=== PATIENT | female | born 1950 | race Caucasian/White ===

== ENCOUNTER 2017-03-18 10:36 | Day surgery (SDC) | payer MEDICARE, BC ==
[~2017-03-18 10:36] MED LIST: Lactated Ringers 1,000 ML IV SCH; Sodium Chloride 0.9% 10 ML Syringe FLUSH PRN
--- NOTE | 2017-03-18 10:57 | PCM.HPR ---
H & P Addendum review - H & P Addendum Review Date of Original H & P: 03/10/17 Date Reviewed: 03/18/17 Time Reviewed: 10:57 Patient was examined: No Changes (ok to proceed with colonoscopy)
[2017-03-18] MEDS ORDERED: Midazolam 1 MG/ML 2 ML SDV ONE ×2 (11:03→11:09)
[2017-03-18] MEDS ORDERED: fentaNYL 100 MCG/2 ML SDV ONE ×2 (11:03→11:09)
[2017-03-18] MEDS ORDERED: Propofol 200 MG/20 ML SDV ONE ×2 (11:05→11:09)
--- NOTE | 2017-03-18 11:37 | PCM.OPNOTE ---
- General Post-Op/Procedure Note Date of Surgery/Procedure: 03/18/17 Operative Procedure(s): Colonoscopy Findings: Sig tics; rectal polyp @ 12 cm Pre Op Diagnosis: Hx Polyps Post-Op Diagnosis: Same Anesthesia Technique: MAC Primary Surgeon: Beka Arredondo Anesthesia Provider: Joselo Contreras Pathology: rectal polyp EBL in mLs: 0 Complications: None Condition: Good
--- NOTE | 2017-03-18 14:43 | OR ---
Date of Procedure: 03/18/2017 PREOPERATIVE DIAGNOSIS: History of colon polyps. POSTOPERATIVE DIAGNOSES: 1. Rectal polyp. 2. Sigmoid diverticulosis. PROCEDURE: Colonoscopy with polypectomy. ANESTHESIA: IV sedation. PROCEDURE IN DETAIL: The patient was brought to the procedure room, where she was placed on the left side and IV sedation administered. Digital rectal exam was performed which was normal. Colonoscope was inserted and advanced to the level of the cecum without difficulty. Cecal position was confirmed by identifying the appendiceal lumen and ileocecal valve. Prep was good and surfaces were well visualized. Upon withdrawing the scope, the ascending, transverse, and descending colon were normal in appearance. Sigmoid colon had several diverticula present. In the rectum, was a 6 mm sessile polyp located 12 cm from the anal verge that was removed with a cautery snare and sent for pathology review. Retroflexion was normal. Air was removed and the scope withdrawn. Patient tolerated the procedure well and returned to recovery in stable condition. The patient will follow up with [facility] next week for review of pathology report. If the polyp is adenomatous, she should undergo next colonoscopy in 3 years. If the polyp is hyperplastic, she can wait 5 years until her next colonoscopy. MARY LOU SANTO MD /[id number]
[2017-03-18 14:52] VITALS: BP 121/59
== END 2017-03-18 13:00 | disposition home or self-care (01) ==
LOC: LL.SDS 10:36
PROVIDERS: ATTEND Surgery
DX: Z12.11 Encounter for screening for malignant neoplasm of colon (principal); K62.1 Rectal polyp; K57.30 Diverticulosis of large intestine without perforation or abscess without bleeding; I10 Essential (primary) hypertension; K21.9 Gastro-esophageal reflux disease without esophagitis; Z86.010 Personal history of colon polyps; Z90.49 Acquired absence of other specified parts of digestive tract; Z79.899 Other long term (current) drug therapy; Z98.890 Other specified postprocedural states; Z88.1 Allergy status to other antibiotic agents; Z88.6 Allergy status to analgesic agent
CPT/HCPCS: 45385; J2250; J2704; J3010; J7120; 00810-QZ; 88305

== ENCOUNTER 2019-06-13 08:16 | Emergency (ER) | payer MEDICARE, BC ==
[2019-06-13] MEDS ORDERED: Famotidine 20 MG/2 ML SDV IVPUSH ONE (08:21)
[2019-06-13] MEDS ORDERED: Metoprolol Tartrate 5 MG/5 ML SDV IVPUSH ONE (08:21)
--- NOTE | 2019-06-13 08:21 | EDM.PDOC ---
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 The patient was standing at her workstation when she had sudden onset severe dizziness, sat in her chair, and had a true syncopal episode with loss of consciousness of unknown length of time. She fell on the left side of her face and head resulting in a superficial abrasion and posterior head contusion as below. No treatment prior to arrival. This episode is similar to her previous episode in 2015 with patient apparently pressing her loop monitor recorder after waking up. No apparent seizure type activity, postictal sedation, stool/urine incontinence, etc. The patient denies any chest pain/pressure, heart flutter, dizziness, orthostasis, orthopnea, diaphoresis, paresthesias, recent decreased exercise tolerance, or any other anginal-type symptoms. No recent history of abdominal pain, heartburn, nausea, diarrhea, melena, gross hematochezia, or any food intolerance, including fatty foods, etc. with last normal bowel movement yesterday. She denies any gross hematuria, colic, or other UTI symptoms. The patient also denies any recent fever, cough, wheezing, dyspnea, etc.. No history of recent headaches, visual changes, diplopia, change in mental status, or other change in neurological status. She did take her medications this morning. She denies any current pain or discomfort. Onset: Today, Sudden, Unknown/Unsure Onset Date: 06/13/19 Onset Time: 07:00 Duration: Resolved Prior to Arrival Location: Reports: Head, Face. Denies: Neck, Chest, Abdomen, Back, Pelvis, Upper Extremity, Left, Upper Extremity, Right, Radiates to Quality: Reports: Same as Previous Episode Improves with: Reports: None Worsens with: Reports: None Context: Reports: Other (As above). Denies: Sick Contact, Trauma Associated Symptoms: Reports: Syncope. 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: Reports: Other (see below) (None) - Related Data Allergies Allergy/AdvReac Type Severity Reaction Status Date / Time ciprofloxacin Allergy Nausea and Verified 06/13/19 08:58 Vomiting oxycodone [From Percodan] AdvReac Other Verified 06/13/19 09:00 Tetanus Vaccines and Toxoid AdvReac Fatigue Verified 06/13/19 09:00 Home Meds: Home Meds Enalapril [Vasotec] 20 mg PO BID 04/08/16 [History] Omeprazole Magnesium [Prilosec Otc] 20 mg PO DAILY 04/08/16 [History] Pyridoxine HCl [Vitamin B-6] 100 mg PO DAILY 04/08/16 [History] Ubidecarenone [Co Q-10] 100 mg PO DAILY 04/08/16 [History] Cholecalciferol (Vitamin D3) [Vitamin D3] 4,000 unit PO DAILY 06/13/19 [History] Diclofenac Sodium [Voltaren 1%] 1 applic TP QID PRN 06/13/19 [History] Docusate Sodium [Colace] 100 mg PO DAILY 06/13/19 [History] Past Medical History HEENT History: Reports: Impaired Vision, Other (See Below). Denies: Allergic Rhinitis, Cataract, Glaucoma, Hard of Hearing, Macular Degeneration, Otitis Media, Retinal Detachment Other HEENT History: The patient wears glasses. Cardiovascular History: Reports: Arrhythmia, Heart Murmur, Hypertension, Syncope. Denies: Afib, Aneurysm, Blood Clots/VTE/DVT, CAD, Cardiomyopathy, Heart Failure, High Cholesterol, SC, PTCA, PVD Other Cardiovascular History: History of recurrent syncope initially in the early with previous episode in January 2017 after the of her with current loop monitor since that time, however specific arrhythmia or etiology of her recurrent incomplete unknown. Unknown benign heart murmur in teenage years. Respiratory History: Reports: Other (See Below). Denies: Asthma, Bronchitis, Recurrent, COPD, PE, Pneumonia, Recurrent, Pneumothorax, Sleep Apnea, TB Other Respiratory History: Stable benign 5 mm right lower lobe right pulmonary nodule by CT scan. Gastrointestinal History: Reports: Cholelithiasis, Colon Polyp, Diverticulosis, GERD, Other (See Below). Denies: Celiac Disease, Chronic Constipation, Chronic Diarrhea, Fecal Incontinence, Gastritis, GI Bleed, Hepatitis, Hiatal Hernia, Inflammatory Bowel Disease, Irritable Bowel Syndrome, Jaundice, Pancreatitis, PUD Other Gastrointestinal History: History of recurrent plastic colonic polyps initially at 20 and 15 cm in 2008 with last rectal plastic colonic polyp at 12 cm on 03/18/17. Genitourinary History: Reports: Urinary Incontinence. Denies: Acute Renal Failure, Chronic Renal Insuffiency, Renal Calculus, Retention, Urinary, STD, UTI , Recurrent Other Genitourinary History: Overactive bladder, uterine Fibroid BIOINFORMATICS TECHNICIAN History: Reports: Dysfunctional Uterine Bleeding, Fibroids, . Denies: Endometriosis, Spontaneous : 2 Para: 2 LMP (Approximate): Other (See Below) Other BIOINFORMATICS TECHNICIAN History: Menopause at about age 44. D&C secondary to uterine fibroids and dysfunctional uterine bleeding as below. Full term without complications during pregnancies or deliveries Musculoskeletal History: Reports: Arthritis, Back Pain, Chronic, Fracture, Neck Pain, Chronic, Osteoarthritis, Osteoporosis, Other (See Below). Denies: Amputation, Gout, RA, SLE Other Musculoskeletal History: Right ankle fracture in 2003 with left ankle trimalleolar fracture on 04/10/07 both requiring surgeries as below. Neurological History: Reports: Headaches, Chronic, Other (See Below). Denies: Alzheimers Disease, Cerebral Aneurysms, Concussion, CVA, Head Trauma, Migraines , MS, Neuropathy, Diabetic, Neuropathy, Peripheral, Parkinson's, Seizure, TIA, Vertigo Other Neuro History: Chronic nonspecific headaches prior to menopause. Psychiatric History: Reports: None. Denies: Abuse, Victim of, ADD, ADHD, Anxiety, Dementia, Depression, Psych Hospitalization(s), PTSD, Suicide Attempt, Suicidal Ideation Endocrine/Metabolic History: Reports: Multinodular Thyroid, Obesity/BMI 30+, Osteopenia, Osteoporosis, Vitamin D Deficiency, Other (See Below). Denies: Diabetes, Gestational, Diabetes, Type I, Diabetes, Type II, Diabetes Mellitus, Type 3c, Hypothyroidism, IDDM Other Endocrine/Metabolic History: Benign thyroid nodules with borderline goiter and negative fine-needle aspiration biopsy as below. Hypoalbuminemia. Osteopenia with possible beginning osteoporosis. Hematologic History: Reports: None. Denies: Anemia, Blood Transfusion(s), Iron Deficiency Immunologic History: Reports: None. Denies: AIDS, HIV, SLE Oncologic (Cancer) History: Reports: None. Denies: Basal Cell Carcinoma, Breast , Cervix, Colon, Hodgkin's Lymphoma, Leukemia, Malignant Melanoma, Non-Hodgkin' s Lymphoma, Ovarian, Squamous Cell Carcinoma, Uterine Dermatologic History: Reports: None. Denies: Eczema, Psoriasis - Infectious Disease History Infectious Disease History: Reports: Chicken Pox, Measles, Mumps. Denies: C- Difficile, Meningitis, Mononucleosis, MRSA, Pertussis (Whooping Cough), Rheumatic Fever, Rubella, Scarlet Fever, Shingles, TB, VRE - Past Surgical History Head Surgeries/Procedures: Reports: None HEENT Surgical History: Reports: Oral Surgery, Other (See Below). Denies: Adenoidectomy, Cataract Surgery, Eye Surgery, Laser Surgery, Myringotomy w Tube( s), Naso-Sinus Surgery, Tonsillectomy Other HEENT Surgeries/Procedures: Multiple teeth extractions with current complete upper dentures and partial lowers. Cardiovascular Surgical History: Reports: Other (See Below). Denies: Varicose Other Cardiovascular Surgeries/Procedures: Loop monitor placement on 02/18/17. Respiratory Surgical History: Reports: None. Denies: Thoracentesis GI Surgical History: Reports: Appendectomy, Cholecystectomy, Colonoscopy, Hernia , Inguinal, Polypectomy, Other (See Below). Denies: EGD, Hernia, Abdominal, Hernia Repair/Other Other GI Surgeries/Procedures: Open cholecystectomy with secondary incidental appendectomy in 1976. Last colonoscopy on 03/18/17 with rectal polyp as above previous colonoscopy on 04/16/11 with no polyps and initial colonoscopy on with hyperplastic colonic polyps 2 as above. Left inguinal hernia repair with mesh placement on 04/09/16. Female Surgical History: Reports: Cystoscopy, D&C, Other (See Below). Denies : Breast Biopsy, Section, Oophorectomy, Salpingo-Oophorectomy, Tubal Ligation Other Female Surgeries/Procedures: D&C secondary to dysfunctional uterine bleeding in the . Normal cystoscopy on 05/01/09. Endocrine Surgical History: Reports: Thyroid Biopsy, Other (See Below) Other Endocrine Surgeries/Procedures: Fine needle aspiration biopsy of the thyroid gland on 07/13/17. Neurological Surgical History: Reports: Other (See Below). Denies: C-Spine, Discectomy, Intracranial, Spinal Fusion, Thoracic Spine, Vertebroplasty Other Neurological Surgeries/Procedures: Patient denies previous L5 laminectomy despite multiple x-rays indicating possible previous procedure in that level. Musculoskeletal Surgical History: Reports: Joint Replacement, Knee Replacement, ORIF, Other (See Below). Denies: Arthroscopic Procedure, Carpal Tunnel, Ganglion Cyst, Shoulder Surgery Other Musculoskeletal Surgeries/Procedures:: ORIF of the right ankle in 2013 with subsequent hardware removal with additional ORIF of the left ankle in March 2007. Right total knee arthroplasty in 2013. Oncologic Surgical History: Reports: None. Denies: Biopsy of Breast Dermatological Surgical History: Reports: Other (See Below) Other Dermatological Surgeries/Procedures: Excision of benign lesions from her nose in 2017. - Past Imaging History Past Imaging History: Reports: Cardiac Echo (Apparent echocardiogram in my not in 2017.), CAT Scan (CT of the chest on 02/20/11. CT of the head on 04/10/07.), DEXA Scan (04/18/15), Mammogram (Last on 04/28/19), Ultrasound (Left breast ultrasound on 04/28/19 and 05/04/19. Soft tissue ultrasound of the neck on 04/21/17 and 04/01/18.) Social & Family History - Family History HEENT: Reports: None. Denies: Glaucoma, Macular Degeneration, Retinal Detachment Cardiac: Reports: Afib, Hypertension, Pacemaker, Other (See Below). Denies: Aneurysm, Arrhythmia, Blood Clots/VTE/DVT, CAD, Heart Failure, Heart Murmur, SC Other Cardiac Family History: Mother with atrial fibrillation, unknown type of heart murmur, and pacemaker placement for unknown reason in her 60s. Hypertension in father. Respiratory: Reports: None. Denies: Asthma, COPD, PE, Sleep Apnea GI: Reports: Colon Polyps, Other (See Below). Denies: Celiac Disease, Cholelithiasis, GERD, GI bleed, Inflammatory Bowel Disease, Irritable Bowel Syndrome, PUD Other GI Family History: Mother and father with history of colonic polyps with mother having colon cancer as below. : Reports: None. Denies: Dialysis, Renal Calculus, Renal Disease/ Insufficiency OBGYN: Reports: None. Denies: Dysfunctional uterine bleeding, Endometriosis, Fibroids, Recurrent Spontaneous Musculoskeletal: Reports: Arthritis, Gout, Osteoarthritis, Other (See Below). Denies: RA, SLE Other Musculoskeletal Family History: Father with history of gout and osteoarthritis. Neurological: Reports: Alzheimers Disease, CVA, Dementia, Seizure, TIA, Other ( See Below). Denies: Cerebral Aneurysms, Migraines, MS, Parkinson's Other Neurological Family History: Mother with severe CVA in her 80s. Father with organic brain syndrome. Daughter with seizure disorder. Daughter with grand mal seizure at age 40. Psychiatric: Reports: None. Denies: Abuse, Victim of, ADD, ADHD, Anxiety, Depression, Psych Hospitalization(s), PTSD, Suicide Attempt Endocrine/Metabolic: Reports: Hypothyroidism, Other (See Below). Denies: Diabetes, Gestational, Diabetes, Type I, Diabetes, type II, Diabetes Mellitus, Type 3c, IDDM Other Endocrine/Metabolic Family History: Mother and sister with hypothyroidism. Hematologic: Reports: None. Denies: Anemia Immunologic: Reports: None. Denies: HIV, SLE Dermatologic: Reports: None. Denies: Eczema, Psoriasis Oncologic: Reports: Colon, Ovarian, Uterine, Other (See Below). Denies: Breast , Cervix, Hodgkin's Lymphoma, Leukemia, Lymphoma, Non-Hodgkin's Lymphoma Other Oncologic Family History: Mother with colon cancer in her 70s. Paternal aunt with non-fatal possible ovarian cancer with another paternal aunt with possible uterine cancer. - Tobacco Use Smoking Status *Q: Never Smoker Tobacco Use Within Last Twelve Months: No Used Tobacco, but Quit: No Smoking Cessation Information Provided To Patient: No Second Hand Smoke Exposure: No Second Hand Smoke Education Provided: No - Caffeine Use Caffeine Use: Reports: Soda (4 sodas per day). Denies: Coffee, Energy Drinks, Tea - Alcohol Use Alcohol Use History: No Days Per Week of Alcohol Use: 0 Number of Drinks Per Day: 0 Number of Drinks Per Day Comment: No previous DWIs, problems with alcohol abuse , etc. 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 ED EXAM, GENERAL - Physical Exam Exam: See Below Exam Limited By: No Limitations General Appearance: Alert, WD/WN, No Apparent Distress Eye Exam: Bilateral Eye: EOMI, Normal Fundi, Normal Inspection (No nystagmus. Patient wears glasses.), PERRL Ears: Normal External Exam, Normal Canal, Hearing Grossly Normal, Normal TMs Nose: Normal Inspection, Normal Mucosa, No Blood Throat/Mouth: Normal Lips, Normal Gums, Normal Oropharynx, Normal Voice, No Airway Compromise. No: Normal Teeth (Complete upper dentures with partial lowers), Dysphagia, Perioral Cyanosis Head: Facial Tenderness, Other (Superficial abrasion in the left lateral superior periorbital region with mild localized tenderness in that area. Additional 23 centimeters diameter moderate subcutaneous hematoma in the left posterior parietal region with no crepitation, deformity, sign of skull fracture , etc.). No: Facial Swelling, Sinus Tenderness Neck: Normal Inspection, Supple, Non-Tender, Full Range of Motion. No: Carotid Bruit, Lymphadenopathy (L), Lymphadenopathy (R), Thyromegaly Respiratory/Chest: No Respiratory Distress, Lungs Clear, Normal Breath Sounds, No Accessory Muscle Use, Chest Non-Tender. No: Pleural Rub, Retractions Cardiovascular: Normal Peripheral Pulses, Regular Rate, Rhythm, No Gallop, No JVD, No Murmur, No Rub. No: No Edema (Dependent edema as below), Gallop/S3, Gallop/S4, Friction Rub Peripheral Pulses: 2+: Radial (L), Radial (R), Dorsalis Pedis (L), Dorsalis Pedis (R) GI/Abdominal: Normal Bowel Sounds, Soft, Non-Tender, No Organomegaly, No Distention, No Abnormal Bruit, No Mass, Pelvis Stable, Other (Obese). No: Guarding (Female) Exam: Deferred Rectal (Female) Exam: Deferred Back Exam: Normal Inspection, Full Range of Motion. No: CVA Tenderness (L), CVA Tenderness (R), Muscle Spasm Extremities: Normal Range of Motion, Non-Tender, Normal Capillary Refill, Pedal Edema (+1 to +2 bilateral pedal/pretibial edema). No: Raza's Sign Neurological: Alert, Oriented, CN II-XII Intact, Normal Cognition, Normal Gait, Normal Reflexes (Negative Babinski's, finger to nose, and pronator rotation tests. No evidence of facial paresis, tongue deviation, orthostasis, etc.. Excellent reverse thought processes.), No Motor/Sensory Deficits Psychiatric: Normal Affect, Normal Mood Skin Exam: Warm, Dry, Normal Color, No Rash, Wound/Incision (Superficial laceration as above), Other (Left scalp subcutaneous hematoma as above). No: Diaphoretic, Ecchymosis, Petechiae Lymphatic: No Adenopathy EKG INTERPRETATION EKG Date: 06/13/19 Time: 08:24 Rhythm: NSR Rate (Beats/Min): 84 [place]: Normal (If cardiac axis) P-Wave: Present QRS: Normal (0.10 seconds representing repolarization changes) ST-T: Normal QT: Normal IA/PQ Interval: 0.18 seconds Comparison: No Change (Since 02/04/11) EKG Interpretation Comments: 1. No acute ischemic changes 2. Repolarization changes Course - Vital Signs Last Recorded V/S: Last Vital Signs Temp 36.8 C 06/13/19 13:20 Pulse 72 06/13/19 13:20 Resp 19 06/13/19 13:20 BP 145/74 H 06/13/19 13:20 Pulse Ox 100 06/13/19 13:20 Vital Signs - 24 hr 06/13/19 06/13/19 06/13/19 08:16 08:44 08:46 Temperature [ 36.4 C Oral] Temperature [ Temporal] Pulse, 80 Peripheral Pulse, 85 82 Peripheral [ Right Pulse Oximetry] Respiratory 18 14 Rate Blood Pressure 156/62 H Blood Pressure 157/84 H 156/62 H [Left Upper Arm ] O2 Sat by Pulse 98 98 Oximetry 06/13/19 06/13/19 06/13/19 08:59 09:13 09:45 Temperature [ Oral] Temperature [ Temporal] Pulse, Peripheral Pulse, 71 72 75 Peripheral [ Right Pulse Oximetry] Respiratory 17 18 19 Rate Blood Pressure Blood Pressure 122/84 141/66 H 134/67 [Left Upper Arm ] O2 Sat by Pulse 98 99 98 Oximetry 06/13/19 06/13/19 06/13/19 10:14 10:40 11:15 Temperature [ Oral] Temperature [ 36.3 C Temporal] Pulse, Peripheral Pulse, 71 78 74 Peripheral [ Right Pulse Oximetry] Respiratory 18 18 18 Rate Blood Pressure Blood Pressure 150/69 H 146/72 H 134/74 [Left Upper Arm ] O2 Sat by Pulse 93 L 98 97 Oximetry 06/13/19 06/13/19 06/13/19 11:45 12:45 13:20 Temperature [ Oral] Temperature [ 36.7 C 36.8 C Temporal] Pulse, Peripheral Pulse, 73 75 72 Peripheral [ Right Pulse Oximetry] Respiratory 19 17 19 Rate Blood Pressure Blood Pressure 145/64 H 153/77 H 145/74 H [Left Upper Arm ] O2 Sat by Pulse 96 96 100 Oximetry - Orders/Labs/Meds Orders: Active Orders 24 hr Category Date Time Status Cardiac Monitoring [RC] . DIRECTED Care 06/13/19 08:21 Active EKG Documentation Completion [RC] ASDIRECTED Care 06/13/19 08:21 Active Oxygen Therapy, ED [RC] PRN Care 06/13/19 08:21 Active Peripheral IV Care [RC] . DIRECTED Care 06/13/19 08:21 Active Pulse Oximetry [RC] CONTINUOUS Care 06/13/19 08:21 Active Up With Assistance [RC] PFP Care 06/13/19 08:21 Active Vital Signs [RC] PFP Care 06/13/19 08:21 Active Nothing per Oral Now Diet [DIET] Diet 06/13/19 Breakfast Active Chest 1V Frontal [CR] Stat Exams 06/13/19 08:21 Taken Chest PE [Ang Chest] [CT] Stat Exams 06/13/19 09:01 Taken Head wo Cont [CT] Stat Exams 06/13/19 10:43 Taken PROLACTIN [REF] Stat Lab 06/13/19 08:34 Received Sodium Chloride 0.9% [Saline Flush] Med 06/13/19 08:21 Active 10 ml FLUSH ASDIRECTED PRN Obtain Past Medical Record [OM.PC] Urgent Oth 06/13/19 08:21 Active Peripheral IV Insertion Adult [OM.PC] Stat Oth 06/13/19 08:21 Ordered Resuscitation Status Stat Resus Stat 06/13/19 08:21 Ordered Medication Orders Sodium Chloride (Saline Flush) 10 ml FLUSH ASDIRECTED PRN PRN Reason: Keep Vein Open Last Admin: 06/13/19 08:47 Dose: 10 ml Admin: 06/13/19 08:46 Dose: 10 ml Labs: Laboratory Tests 06/13/19 06/13/19 06/13/19 Range/Units 08:34 08:34 08:34 WBC 6.2 (4.0-10.2) K/uL RBC 4.96 (3.77-5.09) M/uL Hgb 14.7 (11.7-15.5) g/dL Hct 43.2 (34.0-46.0) % MCV 87.1 (84.0-98.0) fL MCH 29.6 (28.2-33.3) pg MCHC 34.0 (31.7-36.0) g/dL RDW 14.0 (11.2-14.1) % Plt Count 247 (150-350) K/uL Neut % (Auto) 64.0 (45.0-80.0) % Lymph % (Auto) 24.1 (10.0-50.0) % [place] % (Auto) 8.9 (2.0-14.0) % Eos % (Auto) 2.8 (0.0-5.0) % Baso % (Auto) 0.2 (0.0-2.0) % Neut # (Auto) 3.95 (1.40-7.00) K/uL Lymph # (Auto) 1.49 (0.50-3.50) K/uL [place] # (Auto) 0.55 (0.00-1.00) K/uL Eos # (Auto) 0.17 (0.00-0.50) K/uL Baso # (Auto) 0.01 (0.00-0.20) K/uL PT 9.9 (9.5-12.0) SEC INR 0.9 APTT 27.4 (21.0-31.3) SEC D-Dimer, Quantitative 779 H (0-400) ng/mL Sodium (136-145) mmol/L Potassium (3.5-5.1) mmol/L Chloride (98-107) mmol/L Carbon Dioxide (21.0-32.0) mmol/L BUN (7-18) mg/dL Creatinine (0.51-1.17) mg/dL Est Cr Clr Drug Dosing Estimated GFR (MDRD) mL/min Glucose (74-106) mg/dL Lactic Acid (0.4-2.0) mmol/L Uric Acid (2.6-7.2) mg/dL Calcium (8.5-10.1) mg/dL Magnesium (1.8-2.4) mg/dL Total Bilirubin (0.2-1.0) mg/dL AST (15-37) U/L ALT (12-78) U/L Alkaline Phosphatase (46-116) IU/L Creatine Kinase (26-308) U/L Creatine Kinase Index (0.0-2.5) % CK-MB (CK-2) (0.00-3.60) ng/mL Troponin I (0.000-0.056) ng/mL NT-Pro-B Natriuret Pep (0-125) pg/mL Total Protein (6.4-8.2) g/dL Albumin (3.4-5.0) g/dL TSH, Ultra Sensitive (0.358-3.740) mIU/mL 06/13/19 06/13/19 Range/Units 08:34 08:34 WBC (4.0-10.2) K/uL RBC (3.77-5.09) M/uL Hgb (11.7-15.5) g/dL Hct (34.0-46.0) % MCV (84.0-98.0) fL MCH (28.2-33.3) pg MCHC (31.7-36.0) g/dL RDW (11.2-14.1) % Plt Count (150-350) K/uL Neut % (Auto) (45.0-80.0) % Lymph % (Auto) (10.0-50.0) % [place] % (Auto) (2.0-14.0) % Eos % (Auto) (0.0-5.0) % Baso % (Auto) (0.0-2.0) % Neut # (Auto) (1.40-7.00) K/uL Lymph # (Auto) (0.50-3.50) K/uL [place] # (Auto) (0.00-1.00) K/uL Eos # (Auto) (0.00-0.50) K/uL Baso # (Auto) (0.00-0.20) K/uL PT (9.5-12.0) SEC INR APTT (21.0-31.3) SEC D-Dimer, Quantitative (0-400) ng/mL Sodium 144 (136-145) mmol/L Potassium 3.1 L (3.5-5.1) mmol/L Chloride 106 (98-107) mmol/L Carbon Dioxide 28.8 (21.0-32.0) mmol/L BUN 13 (7-18) mg/dL Creatinine 0.88 (0.51-1.17) mg/dL Est Cr Clr Drug Dosing TNP Estimated GFR (MDRD) > 60 mL/min Glucose 137 H (74-106) mg/dL Lactic Acid 1.3 (0.4-2.0) mmol/L Uric Acid 4.7 (2.6-7.2) mg/dL Calcium 8.9 (8.5-10.1) mg/dL Magnesium 1.7 L (1.8-2.4) mg/dL Total Bilirubin 0.7 (0.2-1.0) mg/dL AST 20 (15-37) U/L ALT 31 (12-78) U/L Alkaline Phosphatase 142 H (46-116) IU/L Creatine Kinase 53 (26-308) U/L Creatine Kinase Index 1.5 (0.0-2.5) % CK-MB (CK-2) 0.80 (0.00-3.60) ng/mL Troponin I 0.000 (0.000-0.056) ng/mL NT-Pro-B Natriuret Pep 59 (0-125) pg/mL Total Protein 7.0 (6.4-8.2) g/dL Albumin 3.3 L (3.4-5.0) g/dL TSH, Ultra Sensitive 3.373 (0.358-3.740) mIU/mL Meds: Medications Generic Name Dose Route Start Last Admin Trade Name Freq PRN Reason Stop Dose Admin Sodium Chloride 10 ml 06/13/19 08:21 06/13/19 08:47 Saline Flush FLUSH 10 ml ASDIRECTED PRN Administration Keep Vein Open Discontinued Medications Generic Name Dose Route Start Last Admin Trade Name Delisa PRN Reason Stop Dose Admin Enoxaparin Sodium 120 mg 06/13/19 13:00 06/13/19 13:04 Lovenox SUBCUT 06/13/19 13:01 120 mg DAILY ONE Administration Famotidine 40 mg 06/13/19 08:21 06/13/19 08:46 Pepcid IVPUSH 06/13/19 08:22 40 mg ONETIME ONE Administration Iopamidol 100 ml 06/13/19 09:04 06/13/19 09:32 Isovue-370 (76%) IVPUSH 06/13/19 09:05 100 ml ONETIME ONE Administration Iopamidol Confirm 06/13/19 09:19 Isovue-370 (76%) Administered 06/13/19 09:20 Dose 100 ml .ROUTE .STK-MED ONE Magnesium Oxide 400 mg 06/13/19 10:34 06/13/19 10:39 Magnesium Oxide PO 06/13/19 10:35 400 mg ONETIME ONE Administration Metoprolol Tartrate 2.5 mg 06/13/19 08:21 06/13/19 08:46 Lopressor IVPUSH 06/13/19 08:22 2.5 mg ONETIME ONE Administration Potassium Chloride 20 meq 06/13/19 10:33 06/13/19 10:39 Klor-Con M20 PO 06/13/19 10:34 20 meq ONETIME ONE Administration - Radiology Interpretation Free Text/Narrative:: court recording monitor shows normal sinus rhythm with heart rate in the 70s to 90s with no ectopy or arrhythmia Chest x-ray, portable, shows somewhat prominent proximal aortic arch with no evidence of aneurysm, cardiomegaly, CHF, pulmonary infiltrates, pneumothorax, etc. Her loop recorder was noted. Telephone consultation at 10:26 AM with the radiology department at [facility]. Preliminary verbal report of CTA of the chest using PE protocol. Possibility of multiple small left peripheral filling defects consistent with possible micro-PE of questionable clinical significance. Additional nonspecific diffuse groundglass appearance consistent with pulmonary congestion of unknown etiology. Official written x-ray report from [facility] of [place] scan of the head without contrast shows no acute changes, including CVA, intracranial hematoma, etc. Note preliminary verbal report not received from the radiology department as previously requested. CT Results Date: 06/13/19 CT Results Time: 10:26 Departure - Departure Time of Disposition: 14:05 Disposition: DC/Tfer to Acute Hospital 02 Condition: Good Clinical Impression: Elevated d-dimer, Peptic reflux disease, Hypokalemia, Hypomagnesemia, Hypoalbuminemia Syncope Qualifiers: Syncope type: unspecified Qualified Code(s): R55 - Syncope and collapse Hypertension Qualifiers: Hypertension type: essential hypertension Qualified Code(s): I10 - Essential ( primary) hypertension Osteoarthritis Qualifiers: Osteoarthritis location: multiple joints Osteoarthritis type: primary Qualified Code(s): M15.0 - Primary generalized (osteo)arthritis Contusion Qualifiers: Encounter type: initial encounter Contusion area: head Contusion of head detail : scalp Qualified Code(s): S00.03XA - Contusion of scalp, initial encounter - Discharge Information *PRESCRIPTION DRUG MONITORING PROGRAM REVIEWED*: Not Applicable *COPY OF PRESCRIPTION DRUG MONITORING REPORT IN PATIENT SANJANA: Not Applicable Referrals: PCP,Unknown [Primary Care Provider] - Forms: ED Department Discharge, Interfacility Transfer EMTALA Care Plan Goals: Ambulance transfer with career information specialist accompaniment as below - Problem List & Annotations (1) Syncope SNOMED Code(s): 182058262 Code(s): R55 - SYNCOPE AND COLLAPSE Status: Acute Priority: High Current Visit: Yes Onset Date: 06/13/19 Annotation/Comment:: True syncopal episode today with no apparent current stressors. Note recurrent syncope by history as above with distant echocardiogram in 2017. Repeat echocardiogram is recommended with additional cardiology and/or neurology consultation depending on her clinical course. No chest pain or anginal type symptoms with chest pain protocol not initiated in the emergency room. Recommend routine rule out SC orders by accepting providers, however. Neurological exam was completely normal with no evidence of postictal sedation, etc. Prolactin level was drawn with results pending. Consider carotid artery Doppler studies, Cardiolite stress test, tilt table test, etc. depending on her clinical course. Note that the patient did have a brief few second episode of mild to moderate dizziness and nonspecific fatigue during early portions of ER care with completely normal cardiac care nurse and neurological exam at that time. EKG and cardiac enzymes are normal with exception of d-dimer elevation as above/below. Initial telephone consultation at 10:[address] Blevins, hospitalist at [facility] in [place], who is requesting that a CT scan of the head be conducted prior to transfer the patient to their facility. Subsequent telephone consultation at 12:40 p.m. and 12:55 PM with [facility], including Dr. Blevins, who does accept the patient for direct admission, with no further treatment recommendations given. Note that acute Lovenox therapy for treatment of her d-dimer elevation and possible PE was delayed until results of CT scan of the head were obtained without sequelae. Vital signs and physical exam, including neurological exam, etc. were stable at time of transfer. Ambulance transfer with career information specialist accompaniment. Various therapeutic options were discussed with the patient and her daughter with both parties being in agreement with the above treatment plan. Note that the patient's initial transmission of her loop recorder was unsuccessful. We did contact the cardiology/pacemaker clinic in [place] after we repeated the transmission from earlier this morning, however we have been unable to get a return call from that facility prior to patient's transfer despite several attempts. Last apparent previous transmission on 05/23/19 by their history. Qualifiers: Syncope type: unspecified Qualified Code(s): R55 - Syncope and collapse (2) Elevated d-dimer SNOMED Code(s): 442444150 Code(s): R79.89 - OTHER SPECIFIED ABNORMAL FINDINGS OF BLOOD CHEMISTRY Status: Acute Priority: High Current Visit: Yes Onset Date: 06/13/19 Annotation/Comment:: CTA of the chest results as above. No clinical evidence of PE or DVT, however borderline CT findings as above. BNP is normal. Venous Doppler studies of the lower extremities recommended by the radiologist and will be conducted by accepting providers. Subcutaneous Lovenox initiated at VTE dose prior to discharge/transfer as above. (3) Contusion SNOMED Code(s): 729101946 Code(s): T14.8XXA - OTHER INJURY OF UNSPECIFIED BODY REGION, INITIAL ENCOUNTER Status: Acute Priority: High Current Visit: Yes Onset Date: Annotation/Comment:: Minor left-sided head contusion secondary to syncopal episode as above. Note CT scan of the head results as above. No neurological deficits, etc. prior to patient transfer. Mild left periorbital abrasion/contusion. Qualifiers: Encounter type: initial encounter Contusion area: head Contusion of head detail: scalp Qualified Code(s): S00.03XA - Contusion of scalp, initial encounter (4) Hypertension SNOMED Code(s): 03753249 Code(s): I10 - ESSENTIAL (PRIMARY) HYPERTENSION Status: Chronic Priority : Medium Current Visit: Yes Annotation/Comment:: Stable in the emergency room. Continue to observe closely by accepting providers. Qualifiers: Hypertension type: essential hypertension Qualified Code(s): I10 - Essential (primary) hypertension (5) Hypoalbuminemia SNOMED Code(s): 392543091 Code(s): E88.09 - OTH DISORDERS OF PLASMA-PROTEIN METABOLISM, NEC Status: Acute Priority: Medium Current Visit: Yes Annotation/Comment:: Previously known. Consider high protein Glucerna supplements twice a day as snacks. Close follow-up by accepting and regular providers. Note mild nonfasting hyperglycemia as above with glycosylated hemoglobin and fasting lipid profile recommended during upcoming hospitalization. (6) Hypokalemia SNOMED Code(s): 95126909 Code(s): E87.6 - HYPOKALEMIA Status: Acute Priority: Medium Current Visit: Yes Annotation/Comment:: Potassium chloride oral supplementation initiated in the emergency room. (7) Hypomagnesemia SNOMED Code(s): 339020544 Code(s): E83.42 - HYPOMAGNESEMIA Status: Acute Priority: Medium Current Visit: Yes Onset Date: 06/13/19 Annotation/Comment:: Magnesium oxide initiated the emergency room. Close follow-up by her magnesium and potassium levels by accepting and regular providers. (8) Osteoarthritis SNOMED Code(s): 718327516 Code(s): M19.90 - UNSPECIFIED OSTEOARTHRITIS, UNSPECIFIED SITE Status: Chronic Priority: Medium Current Visit: Yes Annotation/Comment:: Otherwise stable by history with no significant acute injury with today's syncopal episode. Qualifiers: Osteoarthritis location: multiple joints Osteoarthritis type: primary Qualified Code(s): M15.0 - Primary generalized (osteo)arthritis (9) Peptic reflux disease SNOMED Code(s): 567454249 Code(s): K21.9 - GASTRO-ESOPHAGEAL REFLUX DISEASE WITHOUT ESOPHAGITIS Status: Chronic Priority: Medium Current Visit: Yes Annotation/Comment:: Stable by patient history. High-dose IV Pepcid given in the emergency room as GI prophylaxis. - Problem List Review Problem List Initiated/Reviewed/Updated: Yes - My Orders Last 24 Hours: My Active Orders 06/13/19 08:21 Cardiac Monitoring [RC] . DIRECTED EKG Documentation Completion [RC] ASDIRECTED Oxygen Therapy, ED [RC] PRN Peripheral IV Care [RC] . DIRECTED Pulse Oximetry [RC] CONTINUOUS Up With Assistance [RC] PFP Vital Signs [RC] PFP Chest 1V Frontal [CR] Stat Sodium Chloride 0.9% [Saline Flush] 10 ml FLUSH ASDIRECTED PRN Obtain Past Medical Record [OM.PC] Urgent Peripheral IV Insertion Adult [OM.PC] Stat Resuscitation Status Stat 06/13/19 08:34 PROLACTIN [REF] Stat 06/13/19 09:01 Chest PE [Ang Chest] [CT] Stat 06/13/19 10:43 Head wo Cont [CT] Stat 06/13/19 Breakfast Nothing per Oral Now Diet [DIET] - Assessment/Plan Last 24 Hours: My Active Orders 06/13/19 08:21 Cardiac Monitoring [RC] . DIRECTED EKG Documentation Completion [RC] ASDIRECTED Oxygen Therapy, ED [RC] PRN Peripheral IV Care [RC] . DIRECTED Pulse Oximetry [RC] CONTINUOUS Up With Assistance [RC] PFP Vital Signs [RC] PFP Chest 1V Frontal [CR] Stat Sodium Chloride 0.9% [Saline Flush] 10 ml FLUSH ASDIRECTED PRN Obtain Past Medical Record [OM.PC] Urgent Peripheral IV Insertion Adult [OM.PC] Stat Resuscitation Status Stat 06/13/19 08:34 PROLACTIN [REF] Stat 06/13/19 09:01 Chest PE [Ang Chest] [CT] Stat 06/13/19 10:43 Head wo Cont [CT] Stat 06/13/19 Breakfast Nothing per Oral Now Diet [DIET] Assessment:: As above Plan: As above. Extensive precautions were given to the patient and her daughter, who are in agreement with the treatment plan. Ambulance transfer to [facility] in [place] with career information specialist accompaniment as above.
[2019-06-13] MEDS: Sodium Chloride 0.9% 10 ML Syringe FLUSH PRN ×2 (08:46→08:47)
[2019-06-13 09:04] LABS: CHLORIDE,CL 106 mmol/L (98-107); SODIUM,NA 144 mmol/L (136-145)
[2019-06-13] MEDS ORDERED: Iopamidol 755 Mg/ML 100 ML Bottle IVPUSH ONE (09:04)
[2019-06-13] MEDS ORDERED: Iopamidol 755 Mg/ML 100 ML Bottle ONE (09:19)
[2019-06-13] MEDS ORDERED: Potassium Chloride 20 MEQ Tab.ER PO ONE (10:33)
[2019-06-13] MEDS ORDERED: Magnesium Oxide 400 MG Tab PO ONE (10:34)
[2019-06-13] MEDS ORDERED: Enoxaparin 100 MG/1 ML Syringe SUBCUT ONE (13:00)
[2019-06-13 15:05] VITALS: BP 155/74; PULSE 73
== END 2019-06-13 14:05 ==
LOC: LL.ED 08:16
DX: R55 Syncope and collapse (principal); S00.03XA Contusion of scalp, initial encounter; S00.81XA Abrasion of other part of head, initial encounter; M15.0 Primary generalized (osteo)arthritis; I10 Essential (primary) hypertension; K21.9 Gastro-esophageal reflux disease without esophagitis; E87.6 Hypokalemia; E83.42 Hypomagnesemia; R79.1 Abnormal coagulation profile; E88.09 Other disorders of plasma-protein metabolism, not elsewhere classified; E66.9 Obesity, unspecified; Z68.39 Body mass index [BMI] 39.0-39.9, adult; Z88.1 Allergy status to other antibiotic agents; Z88.5 Allergy status to narcotic agent; Z88.7 Allergy status to serum and vaccine; Z79.899 Other long term (current) drug therapy; W07.XXXA Fall from chair, initial encounter
CPT/HCPCS: 36415; 70450; 71045; 71275; 80053; 82550; 82553; 83605; 83735; 83880; 84146; 84443; 84484; 84550; 85025; 85379; 85610; 85730; 93005; 96374; 96375; 99285-25; A9270-GY; J1650; J3490; Q9967